=== PATIENT | female | born 2000 | race Caucasian/White ===

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

== ENCOUNTER 2018-12-05 15:29 | Emergency (ER) | payer OTHER ==
--- NOTE | 2018-12-05 16:06 | ED ---
GI/ HPI - HPI Summary HPI Summary: Patient is a 18 y/o F presenting to ED with complaints of suprapubic pain, back pain, N/V, fatigue, slight dysuria, and increased urgency of urination. She states that Sx onset around 5 days ago. Patient was evaluated by her [facility]. There were concerns that the patient may possibly have a UTI. She was prescribed Macrobid, which she has been taking for the past four days. Patient notes that the urgency of urination is decreased, but other Sx are still present. Suprapubic pain is characterized as sharp and stabbing. Back pain is described as an ache. On triage, pain is rated 5/10. Fever is denied. Patient had onset of vomiting yesterday morning, 12/04/18, but none today. Patient notes that she had an IUD placed 11/19/2018 in [place]. Patient states that she got a paragard IUD. She notes that she has Hx of elevated copper levels , and she is scheduled to have her copper levels rechecked. Last check was normal. PMHx of eosinophilic gastroentertitis, erythematous nodosum, fibromyalgia, asthma, allergies, ovarian cysts. She notes that current presentation is dissimilar to her ovarian cysts. Patient states that she has only taken her daily medications today. She denies tobacco, alcohol, and substance usage. Home medications and allergies are reviewed. - History of Current Complaint Chief Complaint: EDAbdPain Stated Complaint: ABD AND BACK PAIN PER PT Hx Obtained From: Patient Onset/Duration: Started Days Ago - around five days ago, Still Present Timing: Constant, Lasting Days Severity: Moderate Current Severity: Moderate Pain Intensity: 5 Location of Pain: Suprapubic Pain Characteristics: Sharp - /stabbing abdominal pain, Aching - back pain Associated Signs and Symptoms: Positive: Back Pain, Nausea, Vomiting, Abdominal Pain, UTI Symptoms - dysuria, increased urgency of urination, Other: - positive - fatigue. Negative: Fever - Allergy/Home Medications Allergies/Adverse Reactions: Allergies Allergy/AdvReac Type Severity Reaction Status Date / Time peanut Allergy Anaphylatic Verified 08/15/17 01:41 Shock shellfish derived Allergy Anaphylatic Verified 08/15/17 01:41 Shock PMH/Surg Hx/FS Hx/Imm Hx Respiratory History: Reports: Hx Asthma, Other Respiratory Problems/Disorders - allergies GI History: Reports: Other GI Disorders - Hx eosinophilic gastroenteritis History: Reports: Other Problems/Disorders - Hx ovarian cysts Musculoskeletal History: Reports: Hx Fibromyalgia, Other Musculoskeletal History - Hx Amplified pain syndrome Neurological History: Reports: Hx Migraine, Other Neuro Impairments/Disorders - Hx concussion Infectious Disease History: No Infectious Disease History: Denies: Traveled Outside the [place] in Last 30 Days - Family History Known Family History: Positive: Other - Migraines - Social History Alcohol Use: None Hx Substance Use: No Substance Use Type: Reports: None Hx Tobacco Use: No Smoking Status (MU): Never Smoked Tobacco Review of Systems Positive: Fatigue. Negative: Fever Positive: Abdominal Pain, Vomiting, Nausea Positive: dysuria, urgency - increased urgency of urination Musculoskeletal: Other - positive - back pain All Other Systems Reviewed And Are Negative: Yes Physical Exam - Summary Physical Exam Summary: General: Well-developed, Well-nourished Female. No acute distress. HEENT: Normocephalic, Atraumatic. Eyes: conjuctiva normal, PERRL. Ears: TMs within normal limits. Nares: (-) discharge, (-) erythema. Oropharynx: clear, mucous membranes moist, (-) exudates. Neck: soft, FROM, (-) lymphadenopathy, (-) thyromegaly, (-) JVD. Cardiovascular: normal sinus rhythm, (-) murmur. Respiratory: clear to auscultation bilaterally (-) wheezes, (-) rales, (-) rhonchi. Abdomen: soft, mild suprapubic tenderness, non-distended, (-) organomegaly, normal bowel sounds. Neuro: Alert and oriented x3, no focal deficits. Extremities: no edema. Skin: warm, dry, (-) rash. Psychiatric: mood normal, affect normal. Triage Information Reviewed: Yes Vital Signs On Initial Exam: Initial Vitals Temp Pulse Resp BP Pulse Ox 98.8 F 91 18 118/77 99 12/05/18 15:31 12/05/18 15:31 12/05/18 15:31 12/05/18 15:31 12/05/18 15:31 Vital Signs Reviewed: Yes Diagnostics - Vital Signs Vital Signs Temp Pulse Resp BP Pulse Ox 12/05/18 15:31 98.8 F 91 18 118/77 99 - Laboratory Result Diagrams: 12/05/18 16:17 12/05/18 16:17 Lab Statement: Any lab studies that have been ordered have been reviewed, and results considered in the medical decision making process. Re-Evaluation - Re-Evaluation First Eval Re-Evaluation Time: 17:27 Comment: Patient reports that she has been having vaginal discharge but denies pruritus. She had STD testing three weeks ago before IUD placement. This was negative. Patient states that she is monogamous. Requests STD testing. On vaginal exam, there is mucus-like vaginal discharge at the os. Otherwise, normal external female genitalia, vaginal vault is normal, cervix is normal appearing. On internal exam, there is no adenexal tenderness or masses, no CMT. GIGU Course/Dx - Course Course Of Treatment: Patient is a 18 y/o F presenting to ED with complaints of suprapubic pain, back pain, N/V, fatigue, slight dysuria, and increased urgency of urination. She states that Sx onset around 5 days ago. Patient was evaluated by her center. There were concerns that the patient may possibly have a UTI. She was prescribed Macrobid, which she has been taking for the past four days. Patient notes that the urgency of urination is decreased , but other Sx are still present. She had IUD placement two weeks ago. On physical exam, mild suprapubic tenderness is noted. Bloodwork is unremarkable for abnormalities. Beta hCG is negative. UA showed ascorbic acid present. On vaginal exam, there is mucus-like vaginal discharge at the os. Otherwise, normal external female genitalia, vaginal vault is normal, cervix is normal appearing. On internal exam, there is no adenexal tenderness or masses, no CMT. At patient's request, STD testing done. She will be called with any positive results. Patient was discharged to home. She was advised to finish taking her antibiotic and to drink plenty of fluids. Patient will follow up with primary care physician within three days. She will return to ED for any new or worsening symptoms. - Diagnoses Provider Diagnoses: Abdominal pain Discharge ED - Sign-Out/Discharge Documenting (check all that apply): Patient Departure - discharge Patient Received Moderate/Deep Sedation with Procedure: No - Discharge Plan Condition: Stable Disposition: HOME Patient Education Materials: Abdominal Pain (ED) Referrals: [facility] [Outside] - 3 Days Additional Instructions: Please follow up with your primary care physician within three days. Please return to ED for any new or worsening symptoms. Drink plenty of fluids. - Billing Disposition and Condition Condition: STABLE Disposition: Home - Attestation Statements Document Initiated by Arnoldo: Yes Documenting Scribe: GALE KHANNA Provider For Whom Arnoldo is Documenting (Include Credential): SHON PERRY MD Scribe Attestation: I, GALE KHANNA, scribed for SHON PERRY MD on 12/05/18 at 1928. Scribe Documentation Reviewed: Yes Provider Attestation: The documentation as recorded by the GALE andrade accurately reflects the service I personally performed and the decisions made by me, SHON PERRY MD Status of Scribe Document: Viewed
[2018-12-05 16:24] LABS: ABS Eosinophils 0.1 10^3/ul (0-0.6); ABS Lymphocytes 2.2 10^3/ul (1.0-4.8); ABS Monocytes 0.4 10^3/ul (0-0.8); ABS Neutrophils 4.1 10^3/ul (1.5-7.7); Eosinophil % 1.8 %; Hematocrit 38 % (35-47); Hemoglobin 12.5 g/dL (12.0-16.0); Mean Corpuscular HGB Conc 33 g/dL (31-36); Mean Corpuscular Hemoglobin 29 pg (27-31); Mean Corpuscular Volume 87 fL (80-97); Mean Platelet Volume 8.1 fL (7.4-10.4); Nucleated Red Blood Cells % 0.1; Platelet Count 273 10^3/uL (150-450); Red Cell Distribution Width 14 % (10-15)
[2018-12-05 16:41] LABS: ALT 16 U/L (7-52); AST 16 U/L (13-39); Albumin 4.3 g/dL (3.2-5.2); Alkaline Phosphatase 71 U/L (34-104); Anion Gap 4 mmol/L (2-11); BUN/Creatinine Ratio 18.6 (8-20); Blood Urea Nitrogen 13 mg/dL (6-24); CO2 Carbon Dioxide 29 mmol/L (22-32); Calcium 9.3 mg/dL (8.6-10.3); Chloride 104 mmol/L (101-111); EGFR African American 129.1 (>60); EGFR Non-African American 106.7 (>60); Globulin 2.1 g/dL (2-4); Glucose 100 mg/dL (70-100); Sodium 137 mmol/L (135-145); Total Protein 6.4 g/dL (6.4-8.9)
[2018-12-05 16:47] LABS: HCG Pregnancy < 0.60 mIU/mL
[2018-12-05 17:00] LABS: Urine Appearance Clear; Urine Bilirubin Negative (Negative); Urine Blood Negative (Negative); Urine Color Yellow; Urine Glucose Negative (Negative); Urine Ketones Negative (Negative); Urine Nitrite Negative (Negative); Urine Protein Negative (Negative); Urine Specific Gravity 1.021 (1.010-1.030); Urine Urobilinogen Negative (Negative)
[2018-12-05 17:51] VITALS: BP 115/76
--- NOTE | 2018-12-07 09:25 | PN ---
Progress Note - Progress Note Date of Service: 12/05/18 Note: Vaginal swab, positive Gardnerella Patient was not placed on meds prior to discharge Attempted to call patient at 9:30 AM on 12/07/18, voice mailbox is not set up Prescribed metronidazole 500 mg twice a day 7 days This sent to [facility] Letter was sent on 12/07/18 by Mehdi banquet steward
[2018-12-08 13:49] LABS: Chlamydia trachomatis NAA Negative (Negative); Neisseria gonorrhoeae (GC) NAA Negative (Negative)
== END 2018-12-05 17:50 | disposition home or self-care (01) ==
LOC: ED 15:29
DX: R10.9 Unspecified abdominal pain (principal); Z79.899 Other long term (current) drug therapy
CPT/HCPCS: 36415; 80053; 81003; 83605; 84702; 85025; 87480; 87491; 87510; 87591; 87661; 99282

== ENCOUNTER 2019-05-28 19:41 | Emergency (ER) | payer OTHER ==
[2019-05-28 20:49] VITALS: BP 108/72
--- NOTE | 2019-05-28 21:07 | UC ---
FLU HPI - HPI Summary HPI Summary: 19-year-old female present with boyfriend for complaint of body aches, chills, sore throat, nasal congestion, and mild dry cough 2 days. Patient denies shortness breath and wheezing. Denies nausea and vomiting. Unsure of fevers. Notes concern for strep throat. Denies taking anything for symptom relief. - History of Current Complaint Chief Complaint: UCRespiratory Stated Complaint: FLU SYMPTOMS Hx Obtained From: Patient Hx Last Menstrual Period: 05/28/19 Pain Intensity: 6 Pain Scale Used: 0-10 Numeric - Allergy/Home Medications Allergies/Adverse Reactions: Allergies Allergy/AdvReac Type Severity Reaction Status Date / Time peanut Allergy Anaphylatic Verified 05/28/19 20:49 Shock shellfish derived Allergy Anaphylatic Verified 05/28/19 20:49 Shock Home Medications: Home Medications Amitriptyline HCl 1 dose PO DAILY 05/28/19 [History Confirmed 05/28/19] Citalopram TAB* [Celexa TAB*] 1 dose PO DAILY 05/28/19 [History Confirmed ] Dicyclomine HCl 1 dose PO BID 05/28/19 [History Confirmed 05/28/19] Montelukast Sodium 1 tab PO DAILY 05/28/19 [History Confirmed 05/28/19] Paragard IUD 1 unit INTRAUTERI ONCE 05/28/19 [History Confirmed 05/28/19] Spironolactone 1 tab PO DAILY 05/28/19 [History Confirmed 05/28/19] buPROPion TAB* [Wellbutrin TAB*] 75 mg PO BID 05/28/19 [History Confirmed ] hydrOXYzine HCL [Hydroxyzine HCl] 1 dose PO BID 05/28/19 [History Confirmed ] raNITIdine HCL [Ranitidine HCl] 1 dose PO BID 05/28/19 [History Confirmed ] PMH/Surg Hx/FS Hx/Imm Hx - Surgical History Surgical History: Yes Surgery Procedure, Year, and Place: wisdom teeth - Family History Known Family History: Positive: Other - Migraines - Social History Alcohol Use: Occasionally Substance Use Type: Marijuana Substance Use Comment - Amount & Last Used: once a month Smoking Status (MU): Never Smoked Tobacco Review of Systems All Other Systems Reviewed And Are Negative: Yes Constitutional: Positive: Chills ENT: Positive: Sore Throat, Sinus Congestion Respiratory: Positive: Cough. Negative: Shortness Of Breath Cardiovascular: Positive: Negative Gastrointestinal: Positive: Negative Musculoskeletal: Positive: Myalgia Neurological/Mental Status: Positive: Negative Physical Exam - Summary Physical Exam Summary: Vital Signs Reviewed: Yes A+Ox3, no distress, well-appearing Eyes: Conjunctiva Clear ENT: Hearing grossly normal, TM x 2 clear, moist, uvula midline, no exudate, + pharyngeal erythema, +tonsillar swelling Neck: Positive: Supple Respiratory: Positive: No respiratory distress, No accessory muscle use + CTA throughout no w/r Cardiovascular: RRR nl s1, s2 no m/r Musculoskeletal Exam: RENEE x 4 without difficulty Neurological: Positive: Alert Psychological: Positive: age appropriate behavior Skin: Positive: no rash, no ecchymosis Vital Signs: Initial Vital Signs Temp 98.3 F 05/28/19 20:44 Pulse 84 05/28/19 20:44 Resp 18 05/28/19 20:44 BP 108/72 05/28/19 20:44 Pulse Ox 100 05/28/19 20:44 Lab Results 05/28/19 05/28/19 Range/Units 21:11 21:13 Influenza A (Rapid) Negative (Negative) Influenza B (Rapid) Negative (Negative) Group A Strep Rapid Negative (Negative) Flu Course/Dx - Course Course Of Treatment: Negative rapid strep and flu test. Discussed viral illness with patient and instructed to continue symptomatic treatment. Instructed to follow-up [facility] if symptoms persist or worsen. Patient voiced understanding and agreed with the treatment plan. - Differential Dx/Diagnosis Differential Diagnosis/HQI/PQRI: Bronchitis, Influenza, Upper Respiratory Infection Provider Diagnosis: Flu-like symptoms Discharge ED - Sign-Out/Discharge Documenting (check all that apply): Patient Departure All imaging exams completed and their final reports reviewed: No Studies - Discharge Plan Condition: Stable Disposition: HOME Patient Education Materials: Viral Syndrome (ED) Referrals: [facility] [Outside] - If Needed Additional Instructions: As discussed, you tested negative for influenza and strep throat today. Your symptoms are likely caused by virus and should resolve without treatment. You may take over the counter cough and cold medications for symptom relief. Get plenty of rest and increase your fluid intake. Follow up with the [facility] listed below for any new or worsening symptoms. - Billing Disposition and Condition Condition: STABLE Disposition: Home
[2019-05-28 21:22] LABS: Influenza A Molecular Negative (Negative); Influenza B Molecular Negative (Negative)
== END 2019-05-28 21:56 | disposition home or self-care (01) ==
LOC: UCEAST 19:41
DX: J02.9 Acute pharyngitis, unspecified (principal); R05 Cough; M79.10 Myalgia, unspecified site; R09.89 Other specified symptoms and signs involving the circulatory and respiratory systems; Z91.010 Allergy to peanuts; Z91.013 Allergy to seafood
CPT/HCPCS: 87651; 99211; G0463